=== PATIENT | female | born 1955 | race Two or more races ===

== ENCOUNTER 2016-06-30 08:46 | Emergency (ER) | payer SELFPAY ==
[~2016-06-30] VITALS: Ht 157.5 cm; Wt 65.8 kg
[2016-06-30 08:56] VITALS: BP 128/65
[2016-06-30] MEDS ORDERED: HYDROCODONE/APAP 5/325MG 1 EACH TABLET ONE (09:05)
[2016-06-30] MEDS: HYDROCODONE/APAP 5/325MG 1 EACH TABLET PO ONE (09:28)
== END 2016-06-30 10:30 | disposition home or self-care (01) ==
LOC: ER 08:49
DX: M54.5 Low back pain (principal); Z88.0 Allergy status to penicillin
CPT/HCPCS: 72110-TC; A4606; Z7610